=== PATIENT | female | born 1950 | race Two or more races ===

== ENCOUNTER 2017-09-01 22:49 | Inpatient (IN) | payer MEDICARE, MEDICAID ==
[~2017-09-01] VITALS: Ht 157.5 cm; Wt 97.1 kg
[~2017-09-01 22:49] MED LIST: ASPI81TA27 PO; B-CO-5 OR; CINA30TA2 PO; DOCU-94 PO; GABAPENTIN PO; INSUINJ37 SUBCUT; MECL25TA94 PO; MULTCAP45 PO; POTA20TA53 PO; POTA95TA2 OR; TIZANIDINE; losartin; nefedipine; norco
[2017-09-01 23:31] LABS: Basophils # (auto) 0.1 uL; Basophils % (auto) 0.5 % (0.0-2.0); Eosinophils # (auto) 0.1 uL; Eosinophils % (auto) 0.6 % (0.0-7.0); Hematocrit 32.2 % (36.0-46.0); Hemoglobin 10.3 g/dL (12.2-16.2); Lymphocytes # (auto) 1.5 uL; Lymphocytes % (auto) 11.7 % (10.0-50.0); Mean Corpuscular Hemoglobin 30.4 pg (28.0-32.0); Mean Corpuscular Hgb Conc. 32.1 g/dL (32.0-36.0); Mean Corpuscular Volume 94.7 fL (80.0-100.0); Monocytes # (auto) 0.5 uL; Monocytes % (auto) 3.6 % (0.0-12.0); Neutrophils # (auto) 10.9 uL; Neutrophils % (auto) 83.6 % (37.0-80.0); Nucleated Red Blood Cells % 0.1 %; Platelet Count (auto) 450 10^3/uL (140-450); Red Blood Cells 3.39 10^6/uL (4.0-5.20); Red Cell Distribution Width 15.4 % (11.8-14.3)
[2017-09-01 23:48] LABS: Alanine Aminotransferase 11 U/L (13-56); Albumin 2.1 g/dL (3.4-5.0); Alkaline Phosphatase 137 U/L (45-117); Anion Gap 13 (5-15); Aspartate Aminotransferase 11 U/L (15-37); BUN/Creatinine Ratio 3.1; Bilirubin, Total 0.5 mg/dL (0.2-1.0); Blood Urea Nitrogen 23 mg/dL (7-18); Carbon Dioxide 25 mmol/L (21-32); Chloride 90 mmol/L (98-107); GFR African American 7 mL/min; GFR Non-African American 6 mL/min; Glucose 104 mg/dL (74-106); Sodium 128 mmol/L (136-145); Total Protein 7.5 g/dL (6.4-8.2)
[2017-09-01 23:53] LABS: Potassium 2.3 mmol/L (3.5-5.1)
[2017-09-02] MEDS ORDERED: ALBUTEROL SULF 2.5 MG/0.5ML(0.5%) NEB SOLN NEB ONE (01:15)
[2017-09-02] MEDS ORDERED: IPRATROPIUM BROM 0.5 MG/2.5ML INH SOL NEB ONE (01:15)
[2017-09-02] MEDS ORDERED: POTASSIUM CHL 10% (20 MEQ/15ML) 15ml ORAL SOLN PO ONE (02:00)
[2017-09-02] MEDS ORDERED: POTASSIUM CHL 20MEQ/100ML 100 ML IV ONE (02:00)
[2017-09-02] MEDS: MAGNESIUM SULFATE 1GM/100ML 100 ML IV SCH ×4 (02:13→04:05)
[2017-09-02] MEDS ORDERED: HYDROcodone-ACET 5/325MG TAB PO PRN (04:45)
[2017-09-02] MEDS ORDERED: ONDANSETRON HCL 4 MG/2 ML VIAL IV PRN (04:45)
[2017-09-02] MEDS ORDERED: ACETAMINOPHEN 500 MG TAB PO PRN (04:45)
[2017-09-02 05:27] LABS: BUN/Creatinine Ratio 3.2; Calcium 6.5 mg/dL (8.5-10.1)
[2017-09-02 05:39] LABS: Potassium 2.5 mmol/L (3.5-5.1)
[2017-09-02] MEDS ORDERED: DEXTROSE (50%) 50ML SYRG IV PRN (07:30)
[2017-09-02] MEDS ORDERED: POTASSIUM CHL 20 Meq TABLET PO ONE (07:30)
[2017-09-02] MEDS ORDERED: ZOLPIDEM TARTRATE 5 MG TAB PO PRN (07:45)
[2017-09-02] MEDS: POTASSIUM CHL 20MEQ/100ML 100 ML IV SCH ×2 (07:56→11:21)
[2017-09-02 08:15] LABS: Basophils # (auto) 0.2 uL; Basophils % (auto) 1.3 % (0.0-2.0); Eosinophils # (auto) 0.2 uL; Eosinophils % (auto) 1.1 % (0.0-7.0); Hematocrit 28.6 % (36.0-46.0); Hemoglobin 9.4 g/dL (12.2-16.2); Lymphocytes # (auto) 1.6 uL; Lymphocytes % (auto) 10.8 % (10.0-50.0); Mean Corpuscular Hemoglobin 31.2 pg (28.0-32.0); Mean Corpuscular Hgb Conc. 32.9 g/dL (32.0-36.0); Mean Corpuscular Volume 94.8 fL (80.0-100.0); Monocytes % (auto) 6.8 % (0.0-12.0); Nucleated Red Blood Cells % 0.1 %; Platelet Count (auto) 400 10^3/uL (140-450); Red Blood Cells 3.02 10^6/uL (4.0-5.20); Red Cell Distribution Width 15.5 % (11.8-14.3)
[2017-09-02] MEDS ORDERED: cefTRIAXone 1GM/10ml IVPUSH 10 ML IV SCH (09:00)
[2017-09-02 09:10] VITALS: BP 101/55
[2017-09-02] MEDS: AZITHROMYCIN 500MG/ 250ML 250 ML IV SCH (10:06)
[2017-09-02] MEDS: ASPirin-EC 81 mg tab PO SCH (10:07)
[2017-09-02] MEDS: InsuLIN REG 1unit/0.01ml Soln (100units/ml) SC SCH ×3 (11:24→21:35)
[2017-09-02] MEDS: ACCU-CHEK COMFORT CURVE STRIP VI SCH ×3 (11:58→21:35)
[2017-09-02 12:54] VITALS: BP 108/55
[2017-09-02 17:10] VITALS: BP 83/48
[2017-09-02] MEDS: GABAPENTIN 300 MG CAP PO SCH ×2 (17:37→21:37)
[2017-09-02] MEDS: POTASSIUM CHL 20 Meq TABLET PO SCH (21:37)
[2017-09-02 22:36] VITALS: BP 111/55
[2017-09-03] MEDS: PERITONEAL DIALYSIS 2.5% SOLN 2,000 ML IP SCH ×6 (00:18→20:52)
[2017-09-03 05:33] LABS: Basophils # (auto) 0.1 uL; Basophils % (auto) 0.8 % (0.0-2.0); Eosinophils # (auto) 0.3 uL; Eosinophils % (auto) 2.1 % (0.0-7.0); Hematocrit 29.8 % (36.0-46.0); Hemoglobin 9.8 g/dL (12.2-16.2); Lymphocytes # (auto) 1.8 uL; Lymphocytes % (auto) 14.1 % (10.0-50.0); Mean Corpuscular Hemoglobin 31.3 pg (28.0-32.0); Mean Corpuscular Volume 94.8 fL (80.0-100.0); Neutrophils # (auto) 9.6 uL; Nucleated Red Blood Cells % 0.1 %; Platelet Count (auto) 415 10^3/uL (140-450); Red Blood Cells 3.14 10^6/uL (4.0-5.20); Red Cell Distribution Width 15.4 % (11.8-14.3); White Blood Cell 12.8 10^3/uL (4.4-10.8)
[2017-09-03 05:38] VITALS: BP 114/65
[2017-09-03] MEDS: ACCU-CHEK COMFORT CURVE STRIP VI SCH ×4 (06:04→20:53)
[2017-09-03 06:11] LABS: BUN/Creatinine Ratio 3.6; Calcium 6.9 mg/dL (8.5-10.1); Phosphorus 3.6 mg/dL (2.5-4.90)
[2017-09-03] MEDS: GABAPENTIN 300 MG CAP PO SCH ×2 (06:12→10:08)
[2017-09-03] MEDS: POTASSIUM CHL 20 Meq TABLET PO SCH ×3 (06:12→20:52)
[2017-09-03] MEDS: InsuLIN REG 1unit/0.01ml Soln (100units/ml) SC SCH ×4 (06:12→20:52)
[2017-09-03 06:21] LABS: Potassium 2.9 mmol/L (3.5-5.1)
[2017-09-03] MEDS ORDERED: GABAPENTIN 300 MG CAP PO SCH (08:45)
[2017-09-03 09:00] VITALS: BP 107/59
[2017-09-03] MEDS: AZITHROMYCIN 500MG/ 250ML 250 ML IV SCH (09:56)
[2017-09-03] MEDS: ASPirin-EC 81 mg tab PO SCH (10:08)
[2017-09-03] MEDS: PANTOPRAZOLE 40 MG TAB PO SCH (10:08)
[2017-09-03 12:30] VITALS: BP 101/55
[2017-09-03 16:57] VITALS: BP 118/73
[2017-09-03 22:15] VITALS: BP 139/73
[2017-09-04 05:28] VITALS: BP 118/62
[2017-09-04 05:40] LABS: Basophils # (auto) 0.1 uL; Basophils % (auto) 0.5 % (0.0-2.0); Eosinophils # (auto) 0.4 uL; Eosinophils % (auto) 3.1 % (0.0-7.0); Hematocrit 31.6 % (36.0-46.0); Hemoglobin 10.1 g/dL (12.2-16.2); Lymphocytes % (auto) 15.7 % (10.0-50.0); Mean Corpuscular Hemoglobin 30.9 pg (28.0-32.0); Mean Corpuscular Hgb Conc. 31.9 g/dL (32.0-36.0); Mean Corpuscular Volume 96.7 fL (80.0-100.0); Monocytes % (auto) 8.1 % (0.0-12.0); Neutrophils # (auto) 9.1 uL; Neutrophils % (auto) 72.6 % (37.0-80.0); Nucleated Red Blood Cells % 0.1 %; Platelet Count (auto) 414 10^3/uL (140-450); Red Blood Cells 3.27 10^6/uL (4.0-5.20); Red Cell Distribution Width 15.7 % (11.8-14.3); White Blood Cell 12.6 10^3/uL (4.4-10.8)
[2017-09-04] MEDS: InsuLIN REG 1unit/0.01ml Soln (100units/ml) SC SCH ×2 (05:48→11:47)
[2017-09-04] MEDS: ACCU-CHEK COMFORT CURVE STRIP VI SCH ×2 (05:49→11:35)
[2017-09-04 05:58] LABS: BUN/Creatinine Ratio 3.6; Calcium 7.8 mg/dL (8.5-10.1); Potassium 3.9 mmol/L (3.5-5.1)
[2017-09-04] MEDS: PERITONEAL DIALYSIS 2.5% SOLN 2,000 ML IP SCH ×2 (06:00→10:00)
[2017-09-04 09:00] VITALS: BP 145/78
[2017-09-04] MEDS ORDERED: POTASSIUM CHL 20 Meq TABLET PO SCH (10:00)
[2017-09-04] MEDS: ASPirin-EC 81 mg tab PO SCH (10:30)
[2017-09-04] MEDS: PANTOPRAZOLE 40 MG TAB PO SCH (10:30)
[2017-09-04] MEDS: AZITHROMYCIN 500MG/ 250ML 250 ML IV SCH (10:30)
[2017-09-04] MEDS: GABAPENTIN 300 MG CAP PO SCH (10:30)
[2017-09-04 13:00] VITALS: BP 140/85
== END 2017-09-04 13:28 | disposition home or self-care (01) | DRG 640 ==
LOC: ER 22:51 → TELE 22:52 → TELE-WESTW 09-02 08:15
PROVIDERS: ADMIT Nurse Practitioner Family; ATTEND Internal Medicine
DX: E87.6 Hypokalemia (principal); N18.6 End stage renal disease; I12.0 Hypertensive chronic kidney disease with stage 5 chronic kidney disease or end stage renal disease; R65.10 Systemic inflammatory response syndrome (SIRS) of non-infectious origin without acute organ dysfunction; E11.22 Type 2 diabetes mellitus with diabetic chronic kidney disease; J44.1 Chronic obstructive pulmonary disease with (acute) exacerbation; J98.11 Atelectasis; E87.1 Hypo-osmolality and hyponatremia; K59.00 Constipation, unspecified; D64.9 Anemia, unspecified; K21.9 Gastro-esophageal reflux disease without esophagitis; Z79.4 Long term (current) use of insulin; Z99.2 Dependence on renal dialysis; Z79.82 Long term (current) use of aspirin; Z82.5 Family history of asthma and other chronic lower respiratory diseases; Z83.3 Family history of diabetes mellitus
CPT/HCPCS: 36415; 36600; 71045; 80048; 80053; 82805; 82962; 83735; 83880; 84100; 84484; 85025; 86141; 87040; 87081; 87804; 93005; 94640; 96365; 96366; J1815; J3480